=== PATIENT | male | born 1995 | race Caucasian/White ===

== ENCOUNTER 2017-12-31 16:00 | Emergency (ER) | payer BC ==
[2017-12-31 16:12] VITALS: BP 166/88
--- NOTE | 2017-12-31 16:46 | UC ---
Headache HPI - HPI Summary HPI Summary: The patient is a 22-year-old male that had the onset of perioral facial numbness and tingling about 2:50 PM today. He later developed left arm and left leg numbness. Both his left arm and left leg felt slightly weak. Since arriving here he developed a moderate frontal headache. He has had no nausea or vomiting. He has had no photophobia. He states he was diagnosed with migraines about 3 years ago. He states that last year he developed an aura and left arm numbness. He went to [place] and by the time he was evaluated his left arm numbness had resolved and he had a typical migraine. 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 He has never had a CT of the brain. He has never seen a neurologist. - History Of Current Complaint Chief Complaint: UCHeadache Stated Complaint: HEADACHE Time Seen by Provider: 12/31/17 16:05 Hx Obtained From: Patient Onset/Duration: Gradual Onset, Lasting Hours Onset Of Symptoms: Gradual Initially Headache Was: Mild Currently Pain Is: Moderate Pain Intensity: 5 Pain Scale Used: 0-10 Numeric Timing: Hours Character: Dull, Throbbing Location of Headache: Frontal Aggravating Factor(s): Nothing Allevating Factor(s): Nothing Associated Signs And Symptoms: Positive: Negative - Allergies/Home Medications Allergies/Adverse Reactions: Allergies Allergy/AdvReac Type Severity Reaction Status Date / Time shellfish derived Allergy Anaphylatic Verified 12/31/17 16:12 Shock Home Medications: Home Medications Aspirin/Acetaminophen/Caffeine [Excedrin Migraine Geltab] 1 each PO Q12HR PRN [History Confirmed 12/31/17] PMH/Surg Hx/FS Hx/Imm Hx Previously Healthy: Yes - Surgical History Surgical History: None - Family History Known Family History: Positive: Hypertension, Diabetes - Social History Alcohol Use: Occasionally Substance Use Type: None Smoking Status (MU): Current Some Day Smoker Review of Systems Constitutional: Negative Skin: Negative Eyes: Negative ENT: Negative Respiratory: Negative Cardiovascular: Negative Gastrointestinal: Negative Genitourinary: Negative Motor: Negative Neurovascular: Negative Musculoskeletal: Negative Neurological: Numbness Psychological: Negative All Other Systems Reviewed And Are Negative: Yes Physical Exam Triage Information Reviewed: Yes Appearance: Well-Appearing, No Pain Distress, Well-Nourished Vital Signs: Initial Vital Signs Temp 98.5 F 12/31/17 16:02 Pulse 87 12/31/17 16:02 Resp 18 12/31/17 16:02 BP 166/88 12/31/17 16:02 Pulse Ox 98 12/31/17 16:02 Vital Signs Reviewed: Yes Eyes: Positive: Conjunctiva Clear, Other: - eomi/perrl, fundi benign ENT: Positive: Hearing grossly normal, TMs normal. Negative: Pharyngeal erythema, Nasal congestion, Nasal drainage, TM red, Tonsillar swelling, Tonsillar exudate, Trismus, Hoarse voice, Sinus tenderness Dental Exam: Normal Neck: Positive: Supple, Nontender Respiratory: Positive: Lungs clear, Normal breath sounds, No respiratory distress, No accessory muscle use Cardiovascular: Positive: RRR, No Murmur Musculoskeletal: Positive: ROM Intact, No Edema Neurological Exam: Other - CN2-12 intact, strenght 5/5, no pronator drift, DTR' s symmetrical, normal gait Neurological: Positive: Alert, Muscle Tone Normal Psychological Exam: Normal Skin Exam: Normal Headache Course/Dx - Course Course Of Treatment: I informed the patient that we did not have CT here at present. I suggested that he go to the ER for a CT because-he has never had one despite have a left hemiplegia in the past and because his current headache is so atypical from his usual ones. He decline. He stated that his father is current an ER resident at [facility]. I suggested he call his father so we can discuss this. He declined stating he will follow up back home for further evaluation. He is aware of risks and is able to make a competent decision. AMA form signed. - Differential Dx/Diagnosis Provider Diagnoses: Headache of uncertain cause Discharge - Sign-Out/Discharge Documenting (check all that apply): Patient Departure All imaging exams completed and their final reports reviewed: No Studies - Discharge Plan Condition: Fair Disposition: AGAINST MEDICAL ADVICE Referrals: No Primary Care Phys,NOPCP [Primary Care Provider] - - Billing Disposition and Condition Condition: FAIR Disposition: Against Medical Advice
== END 2017-12-31 16:45 | disposition left against medical advice (07) ==
LOC: UCEAST 16:00
DX: R51 Headache (principal); R20.0 Anesthesia of skin; Z91.013 Allergy to seafood; Z72.0 Tobacco use
CPT/HCPCS: 99202; G0463